=== PATIENT | male | born 1965 | race Caucasian/White ===

== ENCOUNTER 2016-07-11 07:50 | Inpatient (IN) | payer OTHER ==
[~2016-07-11] VITALS: Ht 177.8 cm; Wt 70.3 kg
[2016-07-11 18:00] VITALS: BP 112/76
--- NOTE | 2016-07-11 19:00 | NUR ---
ADMISSION NOTE NKA; REGULAR DIET; FULL CODE; FALL AND SEIZURES PRECAUTIONS. Height: 5.10; Weight: 155 Lbs. VS: T: 98.1; BP:112/76; HR: 95; RR: 18; PAIN: 5/10. CIWA:9; COWS: 10. Patient is a 51 y/o male admitted to [facility] on 07/11/2016 at 18:00 for ETOH/Opioid withdrawal placed on 5 day Ativan taper starting on 07/12/2016. Patient reports he used ETOH/Vodka daily for "32 years" and at the rate of 1 litter daily since 05/2016. Last amount used "2 glasses: 100 ml" on 07/11/2016 at 12:00. Oxycodone PO" for a few months daily: 20 mg-30mg". Last dosage of " 10 mg tab" was on 07/11/2016 " in the morning". Patient reports that longest attempts at sobriety was 1.5 years from [id number]. He has been to treatment program at [facility] in 2001. Patient denies history of Seizures. PMH: Alcohol and Opioid use disorder; Chronic Low Back pain; Cervical Disc Disorder; History of traumatic Brain injury; Dyslipidemia; Vitamin D deficiency; Appendicitis in 2002. Patient denied SI/HI. No family history of substance abuse. Patient reports that he does not have a PCP. Upon Initial assessment CIWA 9; COWS 10: pt c/o anxiety; tremors; nervousness; sweating; generalized bone and muscles aches and mild headache 5/10. Doctor Eliu Donato MD aware of patient's condition. Home medications reconciled. Urine collected for UDS. Patient was oriented to the unit and his Room. Breathing is unlabored and even. Lungs Sound are clear bilaterally. Patient denied SOB and chest pain. Heart rate is regular. BS is active in all x4 quadrants. Skin is intact, warm and moist by touch. Patient participated in groups and activities. Safety measures on place by hospital policy: Call light within reach; Bed in lowest position and locked; side rails up x2. Will continue to monitor.
[2016-07-11] MEDS ORDERED: PROMETHAZINE HCL 25 MG/1 ML VIAL IM PRN (19:30)
[2016-07-11] MEDS ORDERED: BUPRENORPHINE HCL 2 MG TAB.SUBL SL PRN (19:30)
[2016-07-11] MEDS ORDERED: LORAZEPAM 1 MG TABLET PO PRN ×2 (19:30)
[2016-07-11] MEDS ORDERED: MIRALAX 17 GM POWD.PACK PO PRN (19:30)
[2016-07-11] MEDS ORDERED: MAG HYDROX/AL HYDROX/SIMETH 30 ML LIQUID UDC PO PRN (19:30)
[2016-07-11] MEDS ORDERED: MAGNESIUM HYDROXIDE 30 ML LIQUID UDC PO PRN (19:30)
[2016-07-11] MEDS ORDERED: LOPERAMIDE HCL 2 MG CAPSULE PO PRN ×2 (19:30)
[2016-07-11] MEDS ORDERED: DICYCLOMINE HCL 20 MG TABLET PO PRN (19:30)
[2016-07-11] MEDS ORDERED: CLONIDINE HCL 0.1 MG TABLET PO PRN (19:30)
[2016-07-11] MEDS ORDERED: ONDANSETRON ODT 4 MG TAB.RAPDIS SL PRN (19:30)
[2016-07-11] MEDS ORDERED: LORAZEPAM 2 MG/1 ML VIAL IM PRN (19:30)
[2016-07-11] MEDS ORDERED: THIAMINE HCL 200 MG/2 ML VIAL IM ONE (19:30)
[2016-07-11] MEDS ORDERED: diphenhydrAMINE 50 MG CAPSULE PO PRN (19:30)
[2016-07-11 19:43] LABS: *AMPHETAMINE, URINE NEGATIVE (NEGATIVE); *BARBITURATE, URINE NEGATIVE (NEGATIVE); *CANNABINOID, URINE NEGATIVE (NEGATIVE); *COCCAINE, URINE NEGATIVE (NEGATIVE); *OPIATE, URINE NEGATIVE (NEGATIVE); *PHENCYCLIDINE SCREEN,URINE NEGATIVE (NEGATIVE)
[2016-07-11 20:00] VITALS: BP 121/87
[2016-07-11 20:45] LABS: HEMATOCRIT 47.2 % (40.0-50.0); HEMOGLOBIN 15.9 g/dL (14.0-18.0); MEAN CORPUSCULAR HEMOGLOBIN 33.5 uug (27.0-31.0); MEAN CORPUSCULAR HGB CONC 34 g/dL (32.0-37.0); MEAN CORPUSCULAR VOLUME 99.7 fL (82.0-92.0); PLATELET COUNT (AUTO) 99 K/uL (150-450); RED BLOOD CELL COUNT(AUTO) 4.74 MIL/uL (4.70-6.10); RED CELL DISTRIBUTION WIDTH 13.9 % (11.5-14.5)
[2016-07-11 20:48] LABS: ALBUMIN 3.7 g/dL (3.4-5.0); BILIRUBIN,TOTAL 0.5 mg/dL (0.2-1.0); CALCIUM 8.9 mg/dL (8.5-10.1); CREATININE 0.7 mg/dL (0.6-1.3); PHENYTOIN (DILANTIN) 4.6 ug/mL (10.0-20.0); POTASSIUM 3.4 mmol/L (3.5-5.1); TOTAL PROTEIN, SERUM 7.9 g/dL (6.4-8.2)
[2016-07-11 20:50] LABS: MAGNESIUM 1.1 mg/dL (1.8-2.4)
[2016-07-11 20:56] LABS: THYROID STIMULATING HORMONE 1.638 mIU/mL (0.358-3.740)
[2016-07-11] MEDS: HYDROXYZINE PAMOATE 25 MG CAPSULE PO PRN (21:13)
[2016-07-11 21:29] LABS: HIV-1 p24 ANTIGEN NON REACTIVE (NONREACTIVE); HIV-1/2 ANTIBODY NON REACTIVE (NONREACTIVE)
[2016-07-11 21:37] LABS: BAND % (MANUAL) 3 % (0-10); EOSINOPHILS % (MANUAL) 4 % (0-8); LYMPHOCYTES % (MANUAL) 23 % (20-40); MONOCYTES % (MANUAL) 10 % (2-10); NEUTROPHILS % (MANUAL) 60 % (42-75); PLATELET ESTIMATE SLIGHT DECREASED
[2016-07-11] MEDS ORDERED: MAGNESIUM OXIDE 400 MG TABLET PO ONE (21:45)
[2016-07-11] MEDS ORDERED: POTASSIUM CHLORIDE 20 MEQ TAB.PRT.SR PO ONE (21:45)
[2016-07-12] VITALS: BP 113/85
[2016-07-12 05:44] VITALS: BP 96/69
[2016-07-12] MEDS ORDERED: MAGNESIUM OXIDE 400 MG TABLET PO ONE ×2 (06:00→21:00)
[2016-07-12] MEDS: METHOCARBAMOL 750 MG TABLET PO PRN (06:35)
--- NOTE | 2016-07-12 06:35 | NUR ---
PRN ROBAXIN ADMINISTRATION Pt c/o muscles spasm. PRN Robaxin PO 750 mg administrated as ordered. Patient tolerated well.Safety measures on place by hospital policy: Call light within reach; Bed in lowest position and locked; side rails up x2. Will continue to monitor.
--- NOTE | 2016-07-12 07:05 | NUR ---
Start of Shift Endorsement received from nightshift nurse. Pt is a 51 y/o male admitted for alcohol and oxycodone dependence. Pt has been placed on a 5 day Ativan taper and tolerating the taper well AEB CIWA 3 and COWS 4. PT received PRN Robaxin and Benadryl during nightshift for withdrawal symptoms. VS WNL, Full Code. PT is alert and oriented x4. Pt is in STABLE condition at this time. Remains compliant with medication and diet regimen. All needs have been met, All safety measures in place per hospital policy. Bed in lowest position, side rails up x2, call-light within reach. Will continue to monitor
[2016-07-12 07:28] LABS: ALBUMIN 3.4 g/dL (3.4-5.0); BILIRUBIN,DIRECT 0.2 mg/dL (0.0-0.2); BILIRUBIN,TOTAL 0.9 mg/dL (0.2-1.0); CALCIUM 9.2 mg/dL (8.5-10.1); CREATININE 0.7 mg/dL (0.6-1.3); MAGNESIUM 1.6 mg/dL (1.8-2.4); POTASSIUM 4.9 mmol/L (3.5-5.1); TOTAL PROTEIN, SERUM 7.3 g/dL (6.4-8.2)
--- NOTE | 2016-07-12 07:32 | NUR ---
REASSESSMENT Pt is sleeping PRN Robaxin was effective.Safety measures on place by hospital policy: Call light within reach; Bed in lowest position and locked; side rails up x2. Will continue to monitor.
--- NOTE | 2016-07-12 07:33 | NUR ---
END OF SHIFT Patient is a 51 y/o male admitted to [facility] on 07/11/2016 at 18:00 for ETOH/Opioid withdrawal placed on 5 day Ativan taper starting on 07/12/2016. Patient reports he used ETOH/Vodka daily for "32 years" and at the rate of 1 litter daily since 05/2016. Last amount used "2 glasses: 100 ml" on 07/11/2016 at 12:00. Oxycodone PO" for a few months daily: 20 mg-30mg". Last dosage of " 10 mg tab" was on 07/11/2016 " in the morning". Patient reports that longest attempts at sobriety was 1.5 years from [id number]. He has been to treatment program at [facility] in 2001. Patient denies history of Seizures. PMH: Alcohol and Opioid use disorder; Chronic Low Back pain; Cervical Disc Disorder; History of traumatic Brain injury; Dyslipidimia; Vitamin D deficiency; Appendicitis in 2002. Patient denied SI/HI. No family history of substance abuse. Patient reports that he does not have a PCP. Upon Initial assessment CIWA 9; COWS 10: pt c/o anxiety; tremors; nervousness; sweating; generalized bone and muscles aches and mild headache /10. Doctor Eliu Donato MD aware of patient's condition. Home medications reconciled. Urine collected for UDS. Patient was oriented to the unit and his Room. Breathing is unlabored and even. Lungs Sound are clear bilaterally. Patient denied SOB and chest pain. Heart rate is regular. BS is active in all x4 quadrants. Skin is intact, warm and moist by touch. Patient participated in groups and activities. Safety measures on place by hospital policy: Call light within reach; Bed in lowest position and locked; side rails up x2. Patient endorsed to day shift nurse in stable condition. Report given.
[2016-07-12 08:00] VITALS: BP 115/77
[2016-07-12] MEDS: FOLIC ACID 1 MG TABLET PO SCH (08:47)
[2016-07-12] MEDS: LORAZEPAM 1 MG TABLET PO SCH ×4 (08:48→21:12)
[2016-07-12] MEDS: MULTIVITAMINS,THERAPEUTIC TABLET PO SCH (08:48)
[2016-07-12] MEDS: THIAMINE HCL 100 MG TABLET PO SCH (08:48)
[2016-07-12] MEDS ORDERED: PATIENT MAY USE OWN MED- MD OK PO SCH ×2 (09:00)
[2016-07-12] MEDS ORDERED: TUBERCULIN,PURIF.PROT.DERIV. 5 TU/0.1 ML TEST ID ONE (09:00)
[2016-07-12] MEDS ORDERED: PRAV40TA3 PO (09:35)
[2016-07-12] MEDS ORDERED: ASPI81TA31 PO (09:35)
[2016-07-12] MEDS ORDERED: CHOL10002 PO (09:35)
[2016-07-12] MEDS ORDERED: PHEN100C4 PO (09:35)
[2016-07-12] MEDS: PATIENT MAY USE OWN MED- MD OK PO SCH ×4 (11:09→21:10)
[2016-07-12 12:00] VITALS: BP 99/68
[2016-07-12 16:00] VITALS: BP 108/74
--- NOTE | 2016-07-12 19:06 | NUR ---
End of shift Endorsement given to nightshift nurse. Pt is a 51 y/o male admitted for alcohol and oxycodone dependence. Pt has been placed on a 5 day Ativan taper and tolerating the taper well AEB CIWA 4 and COWS 4. PT did not receive any prn medications. Pt participated in groups and activities. Intake: 2100ml, Void x5, BM x0. VS WNL, Full Code. PT is alert and oriented x4. Pt is in STABLE condition at this time. Remains compliant with medication and diet regimen. All needs have been met, All safety measures in place per hospital policy. Bed in lowest position, side rails up x2, call-light within reach. Will continue to monitor
--- NOTE | 2016-07-12 19:10 | NUR ---
START OF SHIFT NOTE Patient endorsed by day shift nurse in stable condition. Report received. Patient is a 51 y/o male admitted to [facility] on 07/11/2016 at 18:00 for ETOH/Opioid withdrawal placed on 5 day Ativan taper on 07/12/2016. Patient denies SI/HI. PMH: Alcohol and Opioid use disorder; Chronic Low Back pain; Cervical Disc Disorder; History of traumatic Brain injury; Dyslipidimia; Vitamin D deficiency; Appendicitis in 2002. Upon assessment at 19:00 Patient is alert and oriented x 4. CIWA 7; COWS 6 pt c/o anxiety; tremors; nervousness; sweating; generalized bone and muscles aches and mild headache /10. Breathing is unlabored and even. Lungs Sound are clear bilaterally. Patient denied SOB and chest pain. Heart rate is regular. BS is active in all x4 quadrants. Skin is intact, warm and moist by touch. Patient participated in groups and activities. No PRN Medications given during day shift. Safety measures on place by hospital policy: Call light within reach; Bed in lowest position and locked; side rails up x2. Will continue to monitor.
[2016-07-12 20:00] VITALS: BP 137/95
[2016-07-13] VITALS: BP 128/85
[2016-07-13 04:00] VITALS: BP 99/72
--- NOTE | 2016-07-13 07:05 | NUR ---
Start of Shift Endorsement received from nightshift nurse. Pt is a 51 y/o male admitted for alcohol and oxycodone dependence. Pt has been placed on a 5 day Ativan taper and tolerating the taper well AEB CIWA 4 and COWS 4. PT did not receive any PRN medications during nightshift for withdrawal symptoms. Pt reports sleeping 7 hours. VS WNL, Full Code. PT is alert and oriented x4. Pt is in STABLE condition at this time. Remains compliant with medication and diet regimen. All needs have been met, All safety measures in place per hospital policy. Bed in lowest position, side rails up x2, call-light within reach. Will continue to monitor
--- NOTE | 2016-07-13 07:11 | NUR ---
END OF SHIFT NOTE Patient endorsed to day shift nurse in stable condition. Report given. Patient is a 51 years old male admitted to [facility] on 07/11/2016 at 18:00 for ETOH/Opioid withdrawal placed on 5 day Ativan taper since 07/12/2016. NKA; Regular Diet; Full Code, Fall and Seizures precautions. Patient denies SI/HI. CIWA decreased from 7 to 4; COWS from 6 to 4. During shift, patient presented with anxiety, depression; restlessness, sweating; bones and muscle aches. VS: T: 98.1; HR: 82; RR:12; O2Sat: 97%; BP: 99/72; Pain level: 0/10. Patient compliant with medications regimen. Patient slept 7.5 hours; Intake 1,000 ml; Voided x2. Patient participated in groups and activities. Safety measures on place by hospital policy: Call light within reach; Bed in lowest position and locked; side rails up x2.
[2016-07-13 07:38] LABS: HEMATOCRIT 43.7 % (40.0-50.0); HEMOGLOBIN 14.9 g/dL (14.0-18.0); MEAN CORPUSCULAR HEMOGLOBIN 34.5 uug (27.0-31.0); MEAN CORPUSCULAR HGB CONC 34 g/dL (32.0-37.0); MEAN CORPUSCULAR VOLUME 101.5 fL (82.0-92.0); PLATELET COUNT (AUTO) 91 K/uL (150-450); WHITE BLOOD COUNT (AUTO) 5.2 K/uL (4.0-11.2)
[2016-07-13 08:00] VITALS: BP 109/70
[2016-07-13 08:19] LABS: CREATININE 0.8 mg/dL (0.6-1.3); FOLIC ACID 8.1 NG/ML (8.6-58.9); MAGNESIUM 1.8 mg/dL (1.8-2.4); POTASSIUM 4.6 mmol/L (3.5-5.1)
[2016-07-13] MEDS: MULTIVITAMINS,THERAPEUTIC TABLET PO SCH (08:38)
[2016-07-13] MEDS: FOLIC ACID 1 MG TABLET PO SCH (08:38)
[2016-07-13] MEDS: THIAMINE HCL 100 MG TABLET PO SCH (08:38)
[2016-07-13] MEDS: PATIENT MAY USE OWN MED- MD OK PO SCH ×4 (08:39→20:36)
[2016-07-13] MEDS: LORAZEPAM 1 MG TABLET PO SCH ×3 (08:39→20:35)
[2016-07-13] MEDS ORDERED: GABAPENTIN 300 MG CAPSULE PO SCH (09:00)
[2016-07-13 12:00] VITALS: BP 137/88
[2016-07-13 12:25] LABS: EOSINOPHILS % (AUTO) 5.8 % (0.0-7.0); LYMPHOCYTES % (AUTO) 23.9 % (20.5-51.5); NEUTROPHILS % (AUTO) 50.3 % (38.5-71.5)
[2016-07-13 12:27] LABS: LYMPHOCYTES % (MANUAL) 0 % (20-40); NEUTROPHILS % (MANUAL) 0 % (42-75)
[2016-07-13] MEDS ORDERED: MAGNESIUM OXIDE 400 MG TABLET PO ONE (15:00)
[2016-07-13 16:00] VITALS: BP 132/89
--- NOTE | 2016-07-13 19:02 | NUR ---
START OF SHIFT NOTE Patient endorsed by day shift nurse in stable condition. Report received. Patient is a 51 y/o male admitted to [facility] on 07/11/2016 at 18:00 for ETOH/Opioid withdrawal placed on 5 day Ativan taper on 07/12/2016. Today is day 2. Patient tolerating the taper well. NKA; Regular Diet; Full Code; Fall and Seizures Precautions. Patient denies History of Seizures and SI/HI. Substance Use History: ETOH/Vodka " 1 Liter/daily since 05/2016. Last dosage "2 small glasses" on 07/11/2016. Oxycodone "20 mg/daily(2 Tabs) few months". Last dosage was "2 tabs" on 07/11/2016.Patient reported history of Treatment in the "[facility]" in 2001. PMH: Alcohol and Opioid use disorder; Chronic Low Back pain; Cervical Disc Disorder; History of traumatic Brain injury; Dyslipidemia; Vitamin D deficiency; Appendicitis in 2002. Upon assessment patient is alert and oriented x 4. CIWA 7; COWS 7 : mild withdrawal s/s: anxiety, depression, nervousness; restlessness,tremors that can felt; bones and muscles aches. Pain level :" 7/10". VS: T: 98'5; BP: 136/91; HR: 85; RR 18; O2 Sat: 97%. No PRN Medications were administrated during day shift. Breathing is unlabored and even. Lungs Sound are clear bilaterally. Patient denied SOB and chest pain. Heart rate is regular. BS is active in all x4 quadrants. Abdomen is soft. Skin is intact, warm and dry by touch. Patient participated in groups and activities. No PRN Medications given during day shift. Patient remains compliant with medications and diet regime. Safety measures on place by hospital policy: Call light within reach; Bed in lowest position and locked; side rails up x2. Will continue to monitor.
--- NOTE | 2016-07-13 19:12 | NUR ---
End of shift Endorsement given to nightshift nurse. Pt is a 51 y/o male admitted for alcohol and oxycodone dependence. Pt has been placed on a 5 day Ativan taper and tolerating the taper well AEB CIWA 3 and COWS 4. PT did not receive any prn medications. Pt participated in groups and activities. Intake: 1500ml, Void x3, BM x0. VS WNL, Full Code. PT is alert and oriented x4. Pt is in STABLE condition at this time. Remains compliant with medication and diet regimen. All needs have been met, All safety measures in place per hospital policy. Bed in lowest position, side rails up x2, call-light within reach. Will continue to monitor
[2016-07-13 20:00] VITALS: BP 136/91
[2016-07-13] MEDS: GABAPENTIN 300 MG CAPSULE PO SCH (21:54)
[2016-07-13] MEDS ORDERED: GABAPENTIN 300 MG CAPSULE ONE (22:02)
[2016-07-14] VITALS: BP 127/82
[2016-07-14 04:00] VITALS: BP 123/87
[2016-07-14 07:14] LABS: BILIRUBIN,DIRECT 0.1 mg/dL (0.0-0.2); BILIRUBIN,TOTAL 0.5 mg/dL (0.2-1.0); CALCIUM 8.8 mg/dL (8.5-10.1); CARBON DIOXIDE 27 mmol/L (21-32); CHLORIDE 103 mmol/L (98-107); CREATININE 0.6 mg/dL (0.6-1.3); GFR > 130 mL/min (>60); GLUCOSE 97 mg/dL (74-106); POTASSIUM 4.3 mmol/L (3.5-5.1); SODIUM SERUM 138 mmol/L (136-145); UREA NITROGEN, BLOOD 6 mg/dL (7-18)
[2016-07-14 07:15] LABS: ALANINE AMINOTRANSFERASE 44 U/L (16-63); ALBUMIN 3.2 g/dL (3.4-5.0); ALKALINE PHOSPHATASE 120 U/L (50-136); ASPARTATE AMINOTRANSFERASE 93 U/L (15-37); MAGNESIUM 1.9 mg/dL (1.8-2.4); TOTAL PROTEIN, SERUM 6.8 g/dL (6.4-8.2)
--- NOTE | 2016-07-14 07:19 | NUR ---
317 END OF SHIFT NOTE Patient endorsed to day shift nurse in stable condition. SBAR report given. Patient is a 51 y/o male admitted to [facility] on 07/11/2016 at 18:00 for ETOH/Opioid withdrawal placed on 5 day Ativan taper on 07/12/2016. Today is day 2. Patient tolerating the taper well. NKA; Regular Diet; Full Code; Fall and Seizures Precautions. Patient denies History of Seizures and SI/HI. Substance Use History: ETOH/Vodka " 1 Liter/daily since 05/2016. Last dosage "2 small glasses" on 07/11/2016. Oxycodone "20 mg/daily(2 Tabs) few months". Last dosage was "2 tabs" on 07/11/2016.Patient reported history of Treatment in the "[facility]" in 2001. PMH: Alcohol and Opioid use disorder; Chronic Low Back pain; Cervical Disc Disorder; History of traumatic Brain injury; Dyslipidemia; Vitamin D deficiency; Appendicitis in 2002. CIWA decreased from 7 to 3; COWS decreased from 7 to 4 : During shift, patient presented with anxiety, agitation; nervousness; depression; restlessness, bones and muscle aches. VS WNL. No PRN Medication's administrated during my shift. Patient slept 8 hours 15 minutes.; [id number] ml; Voided x2. Patient compliant with treatment plan. Safety measures on place by hospital policy: Call light within reach; Bed in lowest position and locked; side rails up x2.
[2016-07-14 08:00] VITALS: BP 148/90
--- NOTE | 2016-07-14 08:10 | NUR ---
START OF SHIFT: RECEIVED PT A/O X 4. HE REPORTS ANXIETY AND RESTLESSNESS. CIWA 4 . HE CONTINUES ON ATIVAN TAPER AND STATES IT IS EFFECTIVE4 IN REDUCING S/S OF W/D. PT IS PREOCCUPIED WITH GETTING BACK TO WORK. ENCOURAGED PT TO COMPLETE DETOX. ENCOURAGED GROUP ATTENDANCE TO IMPROVE COPING SKILLS AND PREVENT RELAPSE. . ENCOURAGED INCREASED FLUIDS. WILL CONTINUE TO MONITOR AND PROVIDE SAFE AND SUPPORTIVE ENVIRONMENT.
[2016-07-14] MEDS: GABAPENTIN 300 MG CAPSULE PO SCH ×2 (09:00→15:15)
[2016-07-14 09:17] LABS: HEMATOCRIT 43.8 % (40.0-50.0); HEMOGLOBIN 14.7 g/dL (14.0-18.0); MEAN CORPUSCULAR HEMOGLOBIN 34.1 uug (27.0-31.0); MEAN CORPUSCULAR HGB CONC 34 g/dL (32.0-37.0); MEAN CORPUSCULAR VOLUME 101.8 fL (82.0-92.0); PLATELET COUNT (AUTO) 103 K/uL (150-450); RED BLOOD CELL COUNT(AUTO) 4.31 MIL/uL (4.70-6.10); RED CELL DISTRIBUTION WIDTH 14.1 % (11.5-14.5); WHITE BLOOD COUNT (AUTO) 5.5 K/uL (4.0-11.2)
[2016-07-14] MEDS: FOLIC ACID 1 MG TABLET PO SCH (09:32)
[2016-07-14] MEDS: MULTIVITAMINS,THERAPEUTIC TABLET PO SCH (09:32)
[2016-07-14] MEDS: THIAMINE HCL 100 MG TABLET PO SCH (09:33)
[2016-07-14] MEDS: LORAZEPAM 1 MG TABLET PO SCH ×2 (09:33→13:03)
[2016-07-14] MEDS: PATIENT MAY USE OWN MED- MD OK PO SCH ×4 (09:35→21:37)
[2016-07-14 12:00] VITALS: BP 146/98
[2016-07-14 12:16] LABS: EOSINOPHILS % (MANUAL) 2 % (0-8); LYMPHOCYTES % (MANUAL) 26 % (20-40); MONOCYTES % (MANUAL) 17 % (2-10); NEUTROPHILS % (MANUAL) 55 % (42-75)
[2016-07-14 12:18] LABS: PLATELET ESTIMATE DECREASED
[2016-07-14] MEDS ORDERED: LORAZEPAM 1 MG TABLET PO SCH ×2 (15:00→21:00)
[2016-07-14 16:00] VITALS: BP 133/87
--- NOTE | 2016-07-14 18:55 | NUR ---
END OF SHIFT: PT CONTINUES ON ATIVAN TAPER. LAST CIWA 2. HE STATES THE MEDS ARE EFFECTIVE AND DID NOT REQUEST PRN MEDS. HE IS PREOCCUPIED WITH RETURNING TO WORK. ENCOURAGED PT TO STAY FOCUSED ON THE PRESENT. HE IS ODOROUS AND DISHEVELED. HE ATTENDED SOME GROUPS. [facility]
--- NOTE | 2016-07-14 19:00 | NUR ---
START OF SHIFT NOTE : RECEIVED PT A/O X 4. HE REPORTS Last CIWA 2 . HE CONTINUES ON ATIVAN TAPER AND STATES IT IS EFFECTIVE IN REDUCING S/S OF W/D. ENCOURAGED PT TO COMPLETE DETOX and GROUP ATTENDANCE TO IMPROVE COPING SKILLS AND PREVENT RELAPSE. . ENCOURAGED INCREASED FLUIDS. WILL CONTINUE TO MONITOR AND PROVIDE SAFE AND SUPPORTIVE ENVIRONMENT.
[2016-07-14 20:00] VITALS: BP 128/92
[2016-07-14] MEDS ORDERED: GABAPENTIN 300 MG CAPSULE PO SCH (21:00)
[2016-07-15 03:06] LABS: HCV AB <0.1 s/co ratio (0.0-0.9); HEPATITIS B CORE AB, IgM Negative (Negative); HEPATITIS B SURFACE AG Negative (Negative)
[2016-07-15 04:06] LABS: VIT D, 25-HYDROXY 60.2 ng/mL (30.0-100.0)
--- NOTE | 2016-07-15 06:54 | NUR ---
END OF SHIFT NOTE : Patient is a 51 years old male admitted to [facility] on 07/11/2016 at 18:00 for ETOH/Opioid withdrawal placed on 5 day Ativan taper on 07/12/2016. NKA; Regular Diet; Full Code, Fall and Seizures precautions. Patient denies SI/HI. During shift, patient presented with anxiety. Pain level: 0/10. Patient compliant with medications regimen. No PRNs were given during my shift. Patient slept 7 hours; Intake 1,355 ml; Voided x2. Patient participated in groups and activities. Safety measures on place by hospital policy: Call light within reach; Bed in lowest position and locked; side rails up x2.
--- NOTE | 2016-07-15 07:00 | NUR ---
Start of Shift Notes: Received patient in his room. Alert and oriented x 4. Verbally responsive. Able to make needs known. Respirations even and unlabored. No SOB noted. Skin warm and dry to touch. Abdomen soft and non-distended with (+) BS in all 4 quadrants. No complains of N/V/D or constipation noted. No complains of dysuria. Ambulatory ad nichole with steady gait. Patient is a 51 year old male admitted for ETOh and opiate dependence who was placed on a 5-day Ativan taper as ordered. No adverse reactions noted. Has past medical hx of chronic low back pain, cervical disc disorder, hx of TBI, dyslipidemia, and Vit D. deficiency. NKA. FULL CODE. Regular diet. On fall and seizure precautions. Educated patient on the current plan of care for the day and the medication regimen. Encouraged oral fluid intake and encouraged group participation to learn new skills to prevent relapse. Safety precautions in place. Call light kept in reach. Will continue to monitor closely.
[2016-07-15 08:00] VITALS: BP 149/94
[2016-07-15] MEDS ORDERED: LORAZEPAM 1 MG TABLET PO SCH ×2 (09:00)
[2016-07-15] MEDS ORDERED: GABAPENTIN 300 MG CAPSULE PO SCH (09:00)
[2016-07-15] MEDS: MULTIVITAMINS,THERAPEUTIC TABLET PO SCH (09:04)
[2016-07-15] MEDS: FOLIC ACID 1 MG TABLET PO SCH (09:04)
[2016-07-15] MEDS: PATIENT MAY USE OWN MED- MD OK PO SCH ×4 (09:04→21:00)
[2016-07-15] MEDS: THIAMINE HCL 100 MG TABLET PO SCH (09:04)
[2016-07-15 12:00] VITALS: BP 135/80
[2016-07-15] MEDS: METHOCARBAMOL 750 MG TABLET PO PRN (12:03)
[2016-07-15] MEDS: IBUPROFEN 600 MG TABLET PO PRN (12:03)
--- NOTE | 2016-07-15 12:03 | NUR ---
PRN Motrin and Robaxin PO given: Patient noted with complain of left shoulder pain related to hx of "pinch nerve." Heat packs applied with no help. Medicated patient with Robaxin and Motrin as ordered. Will monitor for effectiveness.
[2016-07-15] MEDS ORDERED: METHYL SALICYLATE/MENTHOL CREAM 28 GM TUBE TOP PRN (12:15)
--- NOTE | 2016-07-15 13:03 | NUR ---
Re-assessment: Per patient, PRN Robaxin and Motrin were effective in reducing his left shoulder pain.
[2016-07-15] MEDS ORDERED: KETOROLAC TROMETHAMINE 30 MG INJ IM PRN (15:15)
[2016-07-15] MEDS: GABAPENTIN 300 MG CAPSULE PO SCH ×2 (15:26→21:16)
--- NOTE | 2016-07-15 15:26 | NUR ---
PRN Toradol 30 mg IM given: Patient continues to complain of left shoulder pain 7/ related to pinched nerve. Medicated patient with Toradol 30 mg IM given as ordered. Will monitor for effectiveness.
--- NOTE | 2016-07-15 15:56 | NUR ---
Re-assessment: Per patient, PRN Toradol was effective in relieving his left shoulder pain.
[2016-07-15 16:00] VITALS: BP 132/96
--- NOTE | 2016-07-15 18:34 | NUR ---
End of Shift Notes: Patient is a 51 year old male admitted on 07/11/2016 for ETOH and opiate dependence who was placed on a 5-day Ativan taper as ordered. No adverse reactions noted. Patient has past medical hx of seizures for which he takes Dilantin for, appendicitis, chronic low back pain, cervical disc disorder, hx of TBI, dyslipidemia, Vit D. deficiency. VS monitored q 4 hours. No significant abnormalities noted. Withdrawal symptoms were closely monitored. Initial COWS 1, CIWA 0. Last COWS 0/CIWA 0. Patient is able to participate in group and therapy sessions. Compliant with care and treatment. With discharge plans tomorrow. UDS in. On fall and seizure precautions. All needs met and attended. Will continue to monitor closely.
[2016-07-15 18:37] LABS: *AMPHETAMINE, URINE NEGATIVE (NEGATIVE); *BARBITURATE, URINE NEGATIVE (NEGATIVE); *CANNABINOID, URINE NEGATIVE (NEGATIVE); *COCCAINE, URINE NEGATIVE (NEGATIVE); *OPIATE, URINE NEGATIVE (NEGATIVE); *PHENCYCLIDINE SCREEN,URINE NEGATIVE (NEGATIVE)
[2016-07-15 20:00] VITALS: BP 141/78
--- NOTE | 2016-07-15 20:00 | NUR ---
Start of Shift Pt is a 51 year old male admitted on 07/11/2016 for ETOH dependence, placed on 5 day Ativan taper, completed. Pt reported consuming 1 liter/daily since 05/2016. Pt also reported use of Oxycodone 10-325mg 2 tab/daily, used "for months" as reported per pt. NKA, regular diet, fall/seizure precautions and full code. PMH: seizures (pt is on Dilantin), appendicitis, chronic low back pain, cervical disc disorder, hx of TBI, dyslipidemia, Vit D. deficiency. Pt is scheduled for discharge tomorrow. Upon assessment, respirations even and unlabored, denies SOB/chest pain, denies n/v/d, bowel sounds active x4, abdomen soft. BP 141/78, pulse 85, respirations 16 , SpO2 99%, temp 97.7. Will administered scheduled medications. Safety measures in place, call light within reach, side rails up x2, bed locked and in low position. Will continue to monitor.
[2016-07-15] MEDS ORDERED: Ibuprofen PO (22:12)
[2016-07-15] MEDS ORDERED: Folic Acid PO (22:12)
[2016-07-15] MEDS ORDERED: Gabapentin PO (22:12)
[2016-07-15] MEDS ORDERED: HYDR-3895 PO (22:12)
[2016-07-15] MEDS ORDERED: DIPH50CA37 PO (22:12)
[2016-07-16] VITALS: BP 140/94
--- NOTE | 2016-07-16 | NUR ---
Vital Signs BP 140/94, pulse 90, respirations 16, SpO2 98%, temp 97.8, no pain 0/10 CIWA deferred d/t pt sleeping, to asses while awake as ordered. Respirations even and unlabored, no s/s of distress noted. Safety measures in place, call light within reach, side rails up x2, bed locked and in low position. Will continue to monitor.
--- NOTE | 2016-07-16 04:00 | NUR ---
Pt refused to be woken up for 0400 VS CIWA deferred d/t pt sleeping, to asses while awake as ordered. Respirations even and unlabored, no s/s of distress noted. Safety measures in place, call light within reach, side rails up x2, bed locked and in low position. Will continue to monitor.
--- NOTE | 2016-07-16 07:00 | NUR ---
End of Shift Pt is a 51 year old male admitted on 07/11/2016 for ETOH dependence, placed on 5 day Ativan taper, completed. Pt reported consuming 1 liter/daily since 05/2016. Pt also reported use of Oxycodone 10-325mg 2 tab/daily, used "for months" as reported per pt. NKA, regular diet, fall/seizure precautions and full code. PMH: seizures (pt is on Dilantin), appendicitis, chronic low back pain, cervical disc disorder, hx of TBI, dyslipidemia, Vit D. deficiency. Pt is scheduled for discharge today. During shift, scheduled medications administered, pt refused Pravastatin 40mg. No PRN medications administered. CIWA 0, COWS 0. No acute s/s of withdrawal noted, Pt slept for 6 hours, intake of 1200 ml PO and voids x1. Safety measures in place, call light within reach, side rails up x2, bed locked and in low position. Endorsed to day shift nurse.
--- NOTE | 2016-07-16 07:10 | NUR ---
Start of Shift Report from Night nurse: pt is here Etoh dependence r/t vodka 1 liter per day; 5 day Ativan taper complete. HHx: seizures with Dilantin ordered, Appendicitis 2002, chronic lower back pain, Cervical disc d/o and traumatic brain injury, relapse, Lipidemia, Vit D. deficiency. Pt is a ful code, regular diet, NKA, fall and seizure precautions ordered. V/S stable. K+ and mag supplement replacement given during his stay. No PRN medications given last night. Pt is awake in his room and getting ready for d/c. Will cont. to monitor the pt.
[2016-07-16 08:00] VITALS: BP 126/97
[2016-07-16] MEDS: PATIENT MAY USE OWN MED- MD OK PO SCH ×3 (08:33)
[2016-07-16] MEDS: FOLIC ACID 1 MG TABLET PO SCH (08:47)
[2016-07-16] MEDS: GABAPENTIN 300 MG CAPSULE PO SCH ×3 (08:48→15:21)
[2016-07-16] MEDS: MULTIVITAMINS,THERAPEUTIC TABLET PO SCH (08:48)
[2016-07-16] MEDS: THIAMINE HCL 100 MG TABLET PO SCH (08:48)
--- NOTE | 2016-07-16 08:48 | NUR ---
Medication Non-Administration Pt refused 0900 H medications ordered before getting d/c'd today: Gabapentin 600mg, MV, Thiamin 100mg and Folic Acid 1mg.
[2016-07-16] MEDS: HYDROXYZINE PAMOATE 25 MG CAPSULE PO PRN (08:52)
--- NOTE | 2016-07-16 08:56 | NUR ---
Unscheduled Medication Administration Pt is very anxious re: getting d/c'd and changed mind and decided to take the PRN Vistaril 25mg and Gabapentin 600mg due at 0900H but still refused the other scheuled 0900H vitamins. Will reassess in 30mins before getting d/c'd.
[2016-07-16] MEDS ORDERED: LORAZEPAM 1 MG TABLET PO SCH (09:00)
--- NOTE | 2016-07-16 09:20 | NUR ---
Transfer to ER Pt is A&O x4, ambulatory independently. Pt is in the process of being d/c'd home and chaperoned to the [employer] ride and in the process of getting into the car when the pt he began to have a panic attack and fainted while in the process of getting into the car. [employer] called and CN and [facility] staff attended to and stayed with the pt while awaiting the [employer]. V/S stable. Pt then transferred to the ED. Dr. Donato is aware and no new orders as this time.
[2016-07-16 12:00] VITALS: BP 118/77
[2016-07-16] MEDS: IBUPROFEN 600 MG TABLET PO PRN (12:17)
--- NOTE | 2016-07-16 12:18 | NUR ---
Transfer from ED, PRN Medication Administration and New ID Bracelet Pending Pt is transferred from ED s/p [employer] interventions & c/o EVANS; PRN Motrin 600mg given as ordered and new p ID bracelet in process so no bar code present, but reassessed pt's 3 proper ID's. Will reassess in 1H.
[2016-07-16] MEDS ORDERED: GABAPENTIN 300 MG CAPSULE PO ONE (12:30)
[2016-07-16] MEDS ORDERED: PATIENT MAY USE OWN MED- MD OK PO ONE (12:30)
--- NOTE | 2016-07-16 13:30 | NUR ---
Reassessment Pt denies EVANS; Motrin is effective. Will cont. to monitor the pt.
[2016-07-16] MEDS: METHOCARBAMOL 750 MG TABLET PO PRN (15:25)
--- NOTE | 2016-07-16 17:02 | NUR ---
Discharge Pt is A&Ox 4, ambulates with steady gait independently. Features symmetrical, no EVANS or dizziness noted. Pt denies chest pain. No SOB noted. No w/d s/sx present. V/S stable. Pt is given the belonging bag with home medications. Pt is chaperoned to lobby to transportations "[employer]" and discharged Stable.
== END 2016-07-16 17:02 | disposition home or self-care (01) | DRG 895 ==
LOC: SRC 17:27
PROVIDERS: ADMIT Internal Medicine; ATTEND Internal Medicine
DX: F10.230 Alcohol dependence with withdrawal, uncomplicated (principal); E87.3 Alkalosis; E87.1 Hypo-osmolality and hyponatremia; K70.10 Alcoholic hepatitis without ascites; F11.23 Opioid dependence with withdrawal; Y90.9 Presence of alcohol in blood, level not specified; D69.6 Thrombocytopenia, unspecified; G40.909 Epilepsy, unspecified, not intractable, without status epilepticus; S06.9X0S Unspecified intracranial injury without loss of consciousness, sequela; X58.XXXS Exposure to other specified factors, sequela; M50.10 Cervical disc disorder with radiculopathy, unspecified cervical region; E55.9 Vitamin D deficiency, unspecified; E83.42 Hypomagnesemia; E86.1 Hypovolemia; E86.0 Dehydration; E78.5 Hyperlipidemia, unspecified; E53.8 Deficiency of other specified B group vitamins; G89.29 Other chronic pain; E87.6 Hypokalemia; E87.8 Other disorders of electrolyte and fluid balance, not elsewhere classified; Z79.899 Other long term (current) drug therapy; Z82.49 Family history of ischemic heart disease and other diseases of the circulatory system; F17.210 Nicotine dependence, cigarettes, uncomplicated; F41.0 Panic disorder [episodic paroxysmal anxiety]
CPT/HCPCS: 36415; 70030-TC; 71010; 80307; 82306; 82746; 83690; 83735; 84443; 85025; 86592; 86705; 86803; 87340; 87806; A4663; G6040-TC; J1885; J3411; Q0163

== ENCOUNTER 2016-07-16 09:11 | Emergency (ER) | payer OTHER ==
[~2016-07-16] VITALS: Ht 177.8 cm; Wt 72.6 kg
[~2016-07-16 09:11] MED LIST: ASPI81TA31 PO; CHOL10002 PO; DIPH50CA37 PO; Folic Acid PO; Gabapentin PO; HYDR-3895 PO; Ibuprofen PO; PHEN100C4 PO; PRAV40TA3 PO
--- NOTE | 2016-07-16 09:25 | NUR ---
PATIENT BROUGHT VIA GURNEY. PATIENT BEING DISCHARGED FROM [facility] WAS IN PARKING LOT AND HAD WITNESSED SEIZURE. [facility] WAS CALLED AND BROUGHT TO ER. DOCTOR LEOS AT BEDSIDE FOR EVALUATION.
[2016-07-16] MEDS ORDERED: IV NORMAL SALINE 500 ML IV ONE (09:30)
[2016-07-16 09:34] LABS: BASOPHILS # (AUTO) 0.1 K/uL (0.0-0.2); BASOPHILS % (AUTO) 1.2 % (0.0-2.0); EOSINOPHILS # (AUTO) 0.2 K/uL (0.0-0.7); EOSINOPHILS % (AUTO) 3.5 % (0.0-7.0); HEMATOCRIT 44.9 % (40.0-50.0); HEMOGLOBIN 14.6 g/dL (14.0-18.0); LYMPHOCYTES # (AUTO) 1.4 K/uL (0.8-4.8); LYMPHOCYTES % (AUTO) 23.1 % (20.5-51.5); MEAN CORPUSCULAR HEMOGLOBIN 33.2 uug (27.0-31.0); MEAN CORPUSCULAR HGB CONC 33 g/dL (32.0-37.0); MONOCYTES # (AUTO) 1.1 K/uL (0.1-1.30); MONOCYTES % (AUTO) 18.4 % (0.0-11.0); NEUTROPHILS # (AUTO) 3.1 K/uL (1.8-8.9); NEUTROPHILS % (AUTO) 53.8 % (38.5-71.5); PLATELET COUNT (AUTO) 155 K/uL (150-450); RED BLOOD CELL COUNT(AUTO) 4.41 MIL/uL (4.70-6.10); RED CELL DISTRIBUTION WIDTH 14.3 % (11.5-14.5); WHITE BLOOD COUNT (AUTO) 5.9 K/uL (4.0-11.2)
[2016-07-16 09:44] LABS: CALCIUM 9.4 mg/dL (8.5-10.1)
[2016-07-16 09:50] LABS: ALBUMIN 3.7 g/dL (3.4-5.0); BILIRUBIN,TOTAL 0.5 mg/dL (0.2-1.0); TOTAL PROTEIN, SERUM 7.8 g/dL (6.4-8.2)
[2016-07-16 10:15] LABS: ANISOCYTOSIS 1+; BAND % (MANUAL) 2 % (0-10); EOSINOPHILS % (MANUAL) 7 % (0-8); LYMPHOCYTES % (MANUAL) 22 % (20-40); MONOCYTES % (MANUAL) 17 % (2-10); NEUTROPHILS % (MANUAL) 52 % (42-75); PLATELET ESTIMATE ADEQUATE
--- NOTE | 2016-07-16 10:20 | NUR ---
PATIENT BEEN SEEN BY [facility] AND ER DOCTOR EVALUATION DONE. PATIENT HAS BEEN WORKED UP AND RESULTS RELEASED READY FOR DISCHARGE AT THIS TIME.
--- NOTE | 2016-07-16 10:45 | NUR ---
REPEAT EKG DONE. REPORTED TO DOCTOR DERIC
--- NOTE | 2016-07-16 10:58 | NUR ---
PATIENT DISCHARGED AT THIS TIME. GIVEN A COPY OF EKG. AND ALL DISCHARGE PAPERWORK GIVEN AND SIGNED BY PATIENT.
--- NOTE | 2016-07-16 11:18 | NUR ---
IV SITE DISCONTINUED UPON DISCHARGE
[2016-07-16 14:48] LABS: CREATINE KINASE MB 2.3 ng/mL (0-5.0)
== END 2016-07-16 11:19 | disposition home or self-care (01) ==
LOC: ER 09:11
DX: F41.9 Anxiety disorder, unspecified (principal); R41.82 Altered mental status, unspecified; F10.20 Alcohol dependence, uncomplicated; Z79.82 Long term (current) use of aspirin
CPT/HCPCS: 36415; 80053; 82550; 82553; 84484; 85025; 85610; 93005 ×2; 96360; 99285; A4663; J7040; 70030-TC